=== PATIENT | male | born 1995 | race Caucasian/White ===

== ENCOUNTER 2017-05-04 11:10 | Outpatient (CLI) | payer BC ==
--- NOTE | 2017-05-04 13:43 | RAD ---
BILATERAL TEMPOROMANDIBULAR JOINT RADIOGRAPH SERIES FIVE VIEWS: CLINICAL HISTORY: Temporomandibular joint pain related to prior injury, trauma. The pain is reported as left sided in location. TECHNIQUE: Bilateral opened and closed mouth, as well as frontal view, of temporomandibular joints performed. FINDINGS: There is appropriate excursion demonstrated with the opened mouth position, with appropriate alignmen t seen on bilateral closed mouth views. No obvious fracture evident. IMPRESSION: No significant temporomandibular joint abnormality evident radiographically. If there is persistent concern, consider MRI, which would provide further evaluation of the joint spaces. POS: [facility]
--- NOTE | 2017-05-04 13:44 | RAD ---
STERNUM TWO VIEWS: HISTORY: Pain for a couple months. No known injury. COMPARISON: None. FINDINGS: No fracture. No cortical irregularity or periosteal reaction. IMPRESSION: Unremarkable two views of sternum. Additional imaging if warranted. Of note, the right anterior obl ique projection is limited in diagnostic quality. POS: [facility]
== END 2017-05-04 11:11 | disposition home or self-care (01) ==
LOC: SCSRAD 11:10
PROVIDERS: ATTEND Family Medicine
DX: M26.632 Articular disc disorder of left temporomandibular joint (principal); R07.89 Other chest pain
CPT/HCPCS: 70330; 71120